=== PATIENT | male | born 1995 | race Caucasian/White ===

== ENCOUNTER 2019-05-13 02:27 | Emergency (ER) | payer OTHER ==
[~2019-05-13] VITALS: Ht 167.6 cm; Wt 68.0 kg
[2019-05-13] MEDS ORDERED: KLONOPIN1 MG PO (02:37)
[2019-05-13] MEDS ORDERED: RESTORIL15 M1 PO (02:39)
[2019-05-13 04:01] VITALS: BP 168/94
== END 2019-05-13 04:02 | disposition home or self-care (01) ==
LOC: M.ERS 02:27
DX: F41.9 Anxiety disorder, unspecified (principal); F32.9 Major depressive disorder, single episode, unspecified; F17.210 Nicotine dependence, cigarettes, uncomplicated

== ENCOUNTER 2019-07-30 18:05 | Emergency (ER) | payer OTHER ==
[~2019-07-30] VITALS: Ht 170.2 cm; Wt 68.0 kg
[~2019-07-30 18:05] MED LIST: KLONOPIN1 MG PO; RESTORIL15 M1 PO
[2019-07-30 18:47] VITALS: BP 132/80
== END 2019-07-30 18:48 | disposition home or self-care (01) ==
LOC: M.ERS 18:05
DX: F41.0 Panic disorder [episodic paroxysmal anxiety] (principal); F32.9 Major depressive disorder, single episode, unspecified